=== PATIENT | male | born 1980 ===

== ENCOUNTER 2018-06-23 13:06 | Emergency (ER) | payer SELFPAY ==
[~2018-06-23] VITALS: Ht 175.3 cm; Wt 70.0 kg
[2018-06-23] MEDS ORDERED: AMOX-422 PO (13:31)
--- NOTE | 2018-06-23 13:44 | NUR ---
boss at bedside
[2018-06-23 14:16] VITALS: BP 124/67
== END 2018-06-23 14:18 | disposition home or self-care (01) ==
LOC: ER 13:07
DX: S61.411A Laceration without foreign body of right hand, initial encounter (principal); F17.200 Nicotine dependence, unspecified, uncomplicated; Z79.899 Other long term (current) drug therapy; W26.8XXA Contact with other sharp object(s), not elsewhere classified, initial encounter; Y93.89 Activity, other specified; Y92.89 Other specified places as the place of occurrence of the external cause; Y99.8 Other external cause status
CPT/HCPCS: 29130; 73130; 99283